=== PATIENT | female | born 1995 | race African-American/Black ===

== ENCOUNTER 2021-03-26 11:06 | Emergency (ER) | payer MEDICAID ==
[~2021-03-26] VITALS: Ht 160 cm; Wt 68.0 kg
[2021-03-26] MEDS ORDERED: LIDOCAINE HCL/EPINEPHRINE 1%-EPI 1:100,000 50 ML VIAL INFIL ONE (11:30)
[2021-03-26] MEDS ORDERED: LIDOCAINE HCL/EPINEPHRINE 1%-EPI 1:100,000 20 ML VIAL ONE (11:39)
[2021-03-26 12:46] LABS: BASOPHILS % 0.5 % (0.0-2.0); HEMATOCRIT. 40.3 % (36.0-48.0); HEMOGLOBIN. 14.3 g/dL (12.0-16.0); LYMPHOCYTES % 36.1 % (20.0-50.0); MEAN CORPUSCULAR HEMOGLOBIN 34.8 pg (28.0-32.0); MEAN CORPUSCULAR VOLUME 98.3 fL (81.0-99.0); MEAN PLATELET VOLUME 8.7 fl (7.4-10.4); MONOCYTES % 6.6 % (2.0-8.0); NEUTROPHILS % 55.8 % (40.0-76.0); PLATELET 357 x1000/uL (130-400); RED CELL DISTRIBUTION WIDTH 12.2 % (11.6-14.6)
[2021-03-26 12:50] LABS: CHLORIDE 111 mEq/L (98-107)
[2021-03-26 12:56] LABS: PROTHROMBIN TIME 11.1 sec (9.6-11.0)
[2021-03-26 12:57] LABS: ETHANOL BLOOD < 10 mg/dL
[2021-03-26] MEDS ORDERED: HYDROCODONE/ACETAMINOPHEN 5/325MG TABLET PO ONE (13:45)
[2021-03-26 13:51] LABS: CLARITY URINE CLEAR (CLEAR); COLOR URINE YELLOW (YELLOW); KETONES URINE NEGATIVE (NEGATIVE); LEUKOCYTE ESTERASE URINE 1+ (NEGATIVE); NITRITE URINE NEGATIVE (NEGATIVE); OCCULT BLOOD URINE NEGATIVE (NEGATIVE); PROTEIN URINE NEGATIVE (NEGATIVE); SPECIFIC GRAVITY URINE 1.019 (1.005-1.030); UROBILINOGEN URINE 0.2 E.U./dL (0.2-1.0)
[2021-03-26 14:10] LABS: *AMPHETAMINES SCREEN URINE NEGATIVE (NEGATIVE); *BARBITURATES SCREEN URINE NEGATIVE (NEGATIVE); OPIATES URINE SCREEN NEGATIVE (NEGATIVE); PHENCYCLIDINE URINE SCREEN NEGATIVE (NEGATIVE)
[2021-03-26 14:11] LABS: *BENZODIAZEPINES SCREEN URINE NEGATIVE (NEGATIVE)
[2021-03-26 14:14] LABS: *COCAINE SCREEN URINE NEGATIVE (NEGATIVE)
[2021-03-26 14:15] LABS: METHADONE URINE SCREEN NEGATIVE (NEGATIVE)
[2021-03-26 14:16] LABS: CANNABINOID URINE SCREEN PRESUMTIVE POSITIVE (NEGATIVE)
[2021-03-26 15:15] VITALS: BP 111/60
== END 2021-03-26 15:14 | disposition home or self-care (01) ==
LOC: ER 13:30
DX: S01.01XA Laceration without foreign body of scalp, initial encounter (principal); E05.90 Thyrotoxicosis, unspecified without thyrotoxic crisis or storm; F12.10 Cannabis abuse, uncomplicated; V03.90XA Pedestrian on foot injured in collision with car, pick-up truck or van, unspecified whether traffic or nontraffic accident, initial encounter; Y93.89 Activity, other specified; Y92.488 Other paved roadways as the place of occurrence of the external cause
CPT/HCPCS: 12001; 36415; 70450; 80053; 80305; 80320; 81003; 84443; 85025; 85610; 99284; J3490; G0480